=== PATIENT | female | born 1970 | race Caucasian/White ===

== ENCOUNTER 2022-05-09 01:42 | Emergency (ER) | payer OTHER, MEDICAID ==
[~2022-05-09] VITALS: Ht 162.6 cm; Wt 72.6 kg
--- NOTE | 2022-05-09 01:45 | NUR ---
Dr. Villagran examining patient.
[2022-05-09] MEDS ORDERED: NACL 0.9% 1,000 ML IV ONE (01:50)
--- NOTE | 2022-05-09 01:52 | NUR ---
PT [facility]RIST[facility]. TAKEN TO BED 10
[2022-05-09 01:55] VITALS: BP 110/59
--- NOTE | 2022-05-09 02:16 | NUR ---
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
--- NOTE | 2022-05-09 02:17 | NUR ---
51 Y/O FEMALE BIB by ALS from home. C/O Syncope x today. Per reported, had syncope episode X 2 in the shower room, BP 88/60 , BS 120 at the scence. Pt states she thinks she may have hit her head and knee but is only complaining about knee pain 06/09. no bruising, redness, or deformities. A/OX4, GCS-15; AMBULATORY W/O ASSISTANCE; UNLABORED BREATHING, SPEAKING IN FULL SENTENCES. PMHx: Rheumatoid Arthritis, Osteoporosis, LEFT MASTECTOMY ALL: CODEINE
[2022-05-09 02:31] LABS: BASOPHILS % (AUTO) 0.7 % (0.0-2.0); EOSINOPHILS # (AUTO) 0.2 K/uL (0-0.4); EOSINOPHILS % (AUTO) 3.3 % (0.0-4.0); HEMATOCRIT 37.3 % (36-48); HEMOGLOBIN 12.5 g/dL (12.0-16.0); LYMPHOCYTES # (AUTO) 2.2 K/uL (2.5-16.5); LYMPHOCYTES % (AUTO) 32.5 % (20.5-51.1); MEAN CORPUSCULAR HEMOGLOBIN 31 pg (27-31); MEAN CORPUSCULAR HGB CONC 34 g/dL (33-37); MEAN CORPUSCULAR VOLUME 90.6 fL (80-94); MONOCYTES # (AUTO) 0.5 K/uL (0.8-1.0); MONOCYTES % (AUTO) 7.5 % (1.7-9.3); NEUTROPHILS # (AUTO) 3.8 K/uL (1.8-7.7); PLATELET COUNT (AUTO) 217 K/uL (140-450); RED BLOOD CELL COUNT(AUTO) 4.12 MIL/uL (4.20-5.40); RED CELL DISTRIBUTION WIDTH 13.7 % (11.6-13.7); WHITE BLOOD COUNT (AUTO) 6.8 K/uL (4.8-10.8)
--- NOTE | 2022-05-09 02:51 | NUR ---
PT TAKEN TO CT VIA WHEELCHAIR Addendum: 05/09/22 at 0252 by [facility] PT TAKEN TO CT VIA BRANDIE
[2022-05-09 03:10] LABS: ALBUMIN 3.6 g/dL (3.4-5.0); ANION GAP 10.2 (8-16); CARBON DIOXIDE 27.2 mmol/L (21-32); CREATININE 0.9 mg/dL (0.6-1.3); MAGNESIUM 2.2 mg/dL (1.8-2.4); POTASSIUM 3.4 mmol/L (3.5-5.1); TOTAL BILIRUBIN 0.2 mg/dL (0.0-1.0)
--- NOTE | 2022-05-09 03:29 | NUR ---
ER MD AT BEDSIDE TALKING WITH PT
[2022-05-09] MEDS ORDERED: MECL-303 PO (03:34)
--- NOTE | 2022-05-09 04:41 | NUR ---
ER DISCUSSING PT RESULTS WITH PT
[2022-05-09 04:49] VITALS: BP 111/61
--- NOTE | 2022-05-09 04:49 | NUR ---
Patient discharged with v/s stable. Written and verbal after care instructions given and explained. Patient alert, oriented and verbalized understanding of instructions. Ambulatory with steady gait. All questions addressed prior to discharge. ID band removed. Patient advised to follow up with PMD. Rx of ANTIVERT given. Patient educated on indication of medication including possible reaction and side effects. Opportunity to ask questions provided and answered. 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
== END 2022-05-09 04:49 | disposition home or self-care (01) ==
LOC: MED 01:42
DX: S09.90XA Unspecified injury of head, initial encounter (principal); R55 Syncope and collapse; E86.0 Dehydration; R42 Dizziness and giddiness; Z79.899 Other long term (current) drug therapy; Z88.5 Allergy status to narcotic agent; W19.XXXA Unspecified fall, initial encounter; Y93.E1 Activity, personal bathing and showering; Y92.89 Other specified places as the place of occurrence of the external cause; Y99.8 Other external cause status
CPT/HCPCS: 36415; 70450; 80053; 83735; 85025; 93005; 96360; 99285; J7030

== ENCOUNTER 2023-03-02 19:29 | Emergency (ER) | payer MEDICAID, OTHER ==
[~2023-03-02] VITALS: Ht 162.6 cm; Wt 73.0 kg
[~2023-03-02 19:29] MED LIST: MECL-303 PO
[2023-03-02 19:57] VITALS: BP 135/83
--- NOTE | 2023-03-02 20:35 | NUR ---
PT TAKEN TO BED 4
[2023-03-02] MEDS ORDERED: KETOROLAC 60 MG/2 ML VIAL IM ONE (20:45)
--- NOTE | 2023-03-02 21:08 | NUR ---
Dr. Buck examining patient.
[2023-03-02 21:16] VITALS: BP 128/76
[2023-03-02] MEDS ORDERED: IBUP-2213 PO (21:22)
[2023-03-02] MEDS ORDERED: CEPH-588 PO (21:22)
== END 2023-03-02 21:25 | disposition home or self-care (01) ==
LOC: MED 19:29
DX: L03.011 Cellulitis of right finger (principal); M06.9 Rheumatoid arthritis, unspecified; Z98.890 Other specified postprocedural states; Z79.899 Other long term (current) drug therapy; Z88.5 Allergy status to narcotic agent
CPT/HCPCS: 96372; 99283; J1885

== ENCOUNTER 2023-10-17 18:17 | Emergency (ER) | payer OTHER ==
[~2023-10-17] VITALS: Ht 167.6 cm; Wt 68.0 kg
[~2023-10-17 18:17] MED LIST changes: +CEPH-588 PO; +IBUP-2213 PO
[2023-10-17 18:35] VITALS: BP 134/81; PULSE 73; RESP 8; TEMP 98; O2SAT 98
[2023-10-17] MEDS ORDERED: SUD30 PO (20:06)
[2023-10-17] MEDS ORDERED: CETI10SG1 PO (20:06)
[2023-10-17] MEDS ORDERED: FLONAS NS (20:06)
== END 2023-10-17 20:03 | disposition home or self-care (01) ==
LOC: MED 18:17
DX: J30.9 Allergic rhinitis, unspecified (principal); Z79.899 Other long term (current) drug therapy
CPT/HCPCS: 99283

== ENCOUNTER 2024-06-11 17:06 | Emergency (ER) | payer OTHER ==
[~2024-06-11] VITALS: Ht 165.1 cm; Wt 81.2 kg
[~2024-06-11 17:06] MED LIST changes: +CETI10SG1 PO; +FLONAS NS; +SUD30 PO
[2024-06-11 17:39] VITALS: BP 138/84; PULSE 66; RESP 19; TEMP 97.5; O2SAT 99
[2024-06-11] MEDS ORDERED: KETO2CRE4 TP (18:45)
== END 2024-06-11 18:56 | disposition home or self-care (01) ==
LOC: MED 17:06
DX: B35.3 Tinea pedis (principal); R03.0 Elevated blood-pressure reading, without diagnosis of hypertension; Z85.3 Personal history of malignant neoplasm of breast; Z79.1 Long term (current) use of non-steroidal anti-inflammatories (NSAID); Z79.899 Other long term (current) drug therapy; Z88.5 Allergy status to narcotic agent
CPT/HCPCS: 99283